=== PATIENT | male | born 1965 | race Hispanic/Latino ===

== ENCOUNTER 2018-12-23 18:23 | Inpatient (IN) | payer OTHER, SELFPAY ==
[~2018-12-23] VITALS: Ht 167.6 cm; Wt 110.7 kg
[2018-12-23] MEDS ORDERED: SODIUM CHLORIDE 0.9% 1000ML 1,000 ML IV ONE (19:47)
[2018-12-23] MEDS ORDERED: KETOROLAC TROMETHAMINE 30MG/ML ONE (19:47)
[2018-12-23] MEDS ORDERED: ONDANSETRON HCL 4 MG/2 ML VIAL ONE (19:47)
[2018-12-23 19:55] LABS: BASOPHILS % (AUTO) 0.4 % (0.0-5.0); EOSINOPHILS % (AUTO) 0.5 % (0.0-8.0); HEMATOCRIT 42.2 % (42-54); MEAN CORPUSCULAR HEMOGLOBIN 30.4 pg (27.0-33.0); MEAN CORPUSCULAR HGB CONC 34.5 g/dL (32.0-36.0); MEAN CORPUSCULAR VOLUME 88.2 fL (79-99); MONOCYTES % (AUTO) 7.3 % (3.0-13.0); NEUTROPHILS % (AUTO) 76.8 % (40.0-77.0); NUCLEATED RED BLOOD CELLS 0.1 % (0.0-0.19); PLATELET COUNT (AUTO) 347 K/uL (130-400); RED BLOOD CELL COUNT(AUTO) 4.79 MIL/uL (4.50-6.20); RED CELL DISTRIBUTION WIDTH 13.2 % (11.0-15.5); WHITE BLOOD COUNT (AUTO) 13.5 K/uL (4.8-10.8)
[2018-12-23 20:10] LABS: CREATININE 0.8 mg/dL (0.5-1.5); POTASSIUM 3.7 mmol/L (3.5-5.1)
[2018-12-23 20:14] LABS: ALBUMIN 2.9 g/dL (3.5-5.0); BILIRUBIN,DIRECT 0.1 mg/dL (0.0-0.3); BILIRUBIN,TOTAL 0.9 mg/dL (0.2-1.0); TOTAL PROTEIN, SERUM 8.2 g/dL (6.0-8.3)
[2018-12-23] MEDS ORDERED: IOHEXOL-350 75 ML VIAL IV ONE (20:42)
[2018-12-23 21:12] LABS: INR 1.33 (0.85-1.15); PARTIAL THROMBOPLASTIN TIME 28.4 SEC (26.3-35.5); PROTHROMBIN TIME 13.6 SEC (9.6-11.6)
[2018-12-23] MEDS ORDERED: ZOSYN 3.375GM+NS 50ML 50 ML IV ONE (23:08)
[2018-12-24 00:20] LABS: APPEARANCE,URINE Clear (CLEAR); BILIRUBIN,URINE Small (NEGATIVE); COLOR,URINE Dark Yellow (YELLOW); GLUCOSE, URINE (UA) Negative (NEGATIVE); KETONES,URINE Negative (NEGATIVE); LEUKOCYTE ESTERASE ,URINE Negative (NEGATIVE); NITRATE,URINE Negative (NEGATIVE); OCCULT BLOOD,URINE Negative (NEGATIVE); PROTEIN,URINE Trace mg/dL (NEGATIVE)
[2018-12-24] MEDS ORDERED: MORPHINE SULFATE 4 MG/1ML SYG IV PRN (02:45)
[2018-12-24] MEDS ORDERED: ONDANSETRON HCL 4 MG/2 ML VIAL IV PRN (02:45)
[2018-12-24] MEDS ORDERED: ACETAMINOPHEN 325 MG TAB PO PRN ×2 (02:45)
[2018-12-24] MEDS ORDERED: MORPHINE SULFATE 2 MG/ML 1ML SYG IV PRN (02:45)
[2018-12-24] MEDS ORDERED: HYDRALAZINE HCL 20 MG/ML VIAL IV PRN (02:45)
[2018-12-24 03:27] LABS: BASOPHILS % (AUTO) 0.2 % (0.0-5.0); EOSINOPHILS % (AUTO) 1.5 % (0.0-8.0); HEMATOCRIT 27.8 % (42-54); LYMPHOCYTES % (AUTO) 19.5 % (21.0-51.0); MEAN CORPUSCULAR HEMOGLOBIN 30.9 pg (27.0-33.0); MEAN CORPUSCULAR HGB CONC 34.6 g/dL (32.0-36.0); MEAN CORPUSCULAR VOLUME 89.2 fL (79-99); MONOCYTES % (AUTO) 9.8 % (3.0-13.0); PLATELET COUNT (AUTO) 190 K/uL (130-400); RED BLOOD CELL COUNT(AUTO) 3.12 MIL/uL (4.50-6.20); RED CELL DISTRIBUTION WIDTH 13.2 % (11.0-15.5); WHITE BLOOD COUNT (AUTO) 6.4 K/uL (4.8-10.8)
[2018-12-24 03:36] LABS: ALBUMIN 2.5 g/dL (3.5-5.0); BILIRUBIN,TOTAL 0.9 mg/dL (0.2-1.0); CREATININE 0.7 mg/dL (0.5-1.5); POTASSIUM 3.6 mmol/L (3.5-5.1); TOTAL PROTEIN, SERUM 7.1 g/dL (6.0-8.3)
[2018-12-24 07:30] VITALS: BP 147/77
[2018-12-24] MEDS ORDERED: FLU VACC QS2019-20 36MOS UP/PF 60 MCG/0.5 ML ML IM SCH (09:15)
[2018-12-24] MEDS ORDERED: FLU VACC QS2019-20 36MOS UP/PF 60 MCG/0.5 ML ML IM ONE (09:15)
[2018-12-24] MEDS: FAMOTIDINE/PF 20 MG/2 ML VIAL IV SCH ×2 (10:52→21:14)
[2018-12-24] MEDS: ENOXAPARIN SODIUM 30 MG/0.3 ML SQ SCH (10:53)
[2018-12-24] MEDS ORDERED: GADODIAMIDE 10 MMOL/20 ML VIAL IV ONE (10:54)
[2018-12-24 11:25] VITALS: BP 138/83
[2018-12-24] MEDS ORDERED: LACTULOSE 20 GM/30 ML UDCUP PO PRN (12:00)
[2018-12-24] MEDS: PNEUMOCOCCAL VACCINE POLYVALENT 0.5 ML/VIAL [PPV] IM SCH (12:19)
[2018-12-24] MEDS: FLU VACC QS2019-20 36MOS UP/PF 60 MCG/0.5 ML ML IM SCH (12:19)
--- NOTE | 2018-12-24 12:36 | NUR ---
i spoke to GI dr skelton and informed of new consult and pt dx; he stated to get a oncology consult first prior to GI but that he would look in on patient; i have informed AJ of this and received orders to consult oncology, calling director of land acquisitiondirector call now.
[2018-12-24] MEDS ORDERED: ASPI-555 PO (13:18)
[2018-12-24] MEDS ORDERED: ATOR40TA71 PO (13:18)
[2018-12-24] MEDS ORDERED: LISI40TA4 PO (13:18)
[2018-12-24 16:00] VITALS: BP 150/87
[2018-12-24] MEDS: INSULIN HUMULIN R 100 UNIT/ML 3ML SQ SCH ×2 (16:30→21:00)
[2018-12-24 20:00] VITALS: BP 139/86
[2018-12-24 23:37] VITALS: BP 154/83
[2018-12-25 03:55] VITALS: BP 141/89
[2018-12-25 05:14] LABS: BASOPHILS % (AUTO) 0.4 % (0.0-5.0); EOSINOPHILS % (AUTO) 1.1 % (0.0-8.0); HEMATOCRIT 38.1 % (42-54); MEAN CORPUSCULAR HEMOGLOBIN 30.6 pg (27.0-33.0); MEAN CORPUSCULAR HGB CONC 34.9 g/dL (32.0-36.0); MEAN CORPUSCULAR VOLUME 87.7 fL (79-99); MONOCYTES % (AUTO) 7.3 % (3.0-13.0); NEUTROPHILS % (AUTO) 74.2 % (40.0-77.0); PLATELET COUNT (AUTO) 267 K/uL (130-400); RED BLOOD CELL COUNT(AUTO) 4.35 MIL/uL (4.50-6.20); RED CELL DISTRIBUTION WIDTH 13.2 % (11.0-15.5); WHITE BLOOD COUNT (AUTO) 8.2 K/uL (4.8-10.8)
[2018-12-25 05:21] LABS: CREATININE 0.8 mg/dL (0.5-1.5)
[2018-12-25] MEDS: INSULIN HUMULIN R 100 UNIT/ML 3ML SQ SCH ×4 (07:29→20:05)
[2018-12-25 08:00] VITALS: BP 141/86
[2018-12-25] MEDS: ENOXAPARIN SODIUM 30 MG/0.3 ML SQ SCH (09:00)
[2018-12-25] MEDS: PNEUMOCOCCAL VACCINE POLYVALENT 0.5 ML/VIAL [PPV] IM SCH (09:15)
[2018-12-25] MEDS: ATORVASTATIN CALCIUM 40 MG TABLET PO SCH (09:49)
[2018-12-25] MEDS: ASPIRIN 81 MG EC TAB PO SCH (09:49)
[2018-12-25] MEDS: LISINOPRIL 40 MG TABLET PO SCH (09:49)
[2018-12-25] MEDS: FAMOTIDINE/PF 20 MG/2 ML VIAL IV SCH ×2 (09:49→20:04)
[2018-12-25 11:00] VITALS: BP 145/88
[2018-12-25] MEDS: FLU VACC QS2019-20 36MOS UP/PF 60 MCG/0.5 ML ML IM SCH (11:45)
--- NOTE | 2018-12-25 15:37 | NUR ---
cm note resides at home with brother, pt is independent with ambulation, adls and self care, no dme.. states [facility] to [facility] possible [facility] assist program. provided pt with list of low income clinics in the area for MD followup , rx assist programs, pt verbalizes understanding, and will followup with an MD. dc plan is to home at me. Addendum: 12/25/18 at 1540 by ZEINA JEAN CM Amended: Links added.
[2018-12-25 16:00] VITALS: BP 156/91
[2018-12-25 19:06] VITALS: BP 150/86
[2018-12-25 23:14] VITALS: BP 147/85
[2018-12-26 04:00] VITALS: BP 131/78
[2018-12-26] MEDS: INSULIN HUMULIN R 100 UNIT/ML 3ML SQ SCH ×4 (06:34→21:00)
[2018-12-26 08:03] VITALS: BP 138/81
[2018-12-26] MEDS: ENOXAPARIN SODIUM 30 MG/0.3 ML SQ SCH (09:00)
[2018-12-26] MEDS: ASPIRIN 81 MG EC TAB PO SCH (09:00)
[2018-12-26] MEDS: ATORVASTATIN CALCIUM 40 MG TABLET PO SCH (09:00)
[2018-12-26] MEDS: LISINOPRIL 40 MG TABLET PO SCH (09:49)
[2018-12-26] MEDS: FAMOTIDINE/PF 20 MG/2 ML VIAL IV SCH (09:49)
[2018-12-26 10:01] LABS: INR 1.35 (0.85-1.15); PARTIAL THROMBOPLASTIN TIME 27.9 SEC (26.3-35.5); PROTHROMBIN TIME 13.7 SEC (9.6-11.6)
[2018-12-26 12:00] VITALS: BP 141/86
--- NOTE | 2018-12-26 14:15 | NUR ---
PROCEDURE PATIENT SCHEDULED FOR U/S GD LIVER LESION BIOPSY. PATENT TRANSPORTED TO DEPARTMENT AND DISCUSSED PROCEDURE WITH DR Jimbo MARQUEZ. PATIENT STATED HE HAD ALREADY HAD A BIOPSY OF HIS LIVER AND STOMACH MASS A MONTH AGO AT [facility]. [facility] RECORDS REVIEWED BY DR MARQUEZ AND VERIFIED ADEQUATE SAMPLES WITH PATHOLOGY RESULTS OF PREVIOUS LIVER BIOPSY. PROCEDURE CANCELLED BY RADIOLOGIST AND OUTCOME REPORTED TO HERBERTH KING. PATIENT TRANSPORTED TO [facility] VIA BED.
--- NOTE | 2018-12-26 15:26 | NUR ---
RD NOTIFICATION DX: GANGRENOUS INFECTION TO LEFT LEG. DIET: CLEAR LIQUIDS. PO INTAKE 100% AND HAS GOOD APPETITE PER PT. LBM: 12/20. PT ADMITS TO BEING NON COMPLIANT WITH DM MEDICATION, HOWEVER DOES TRY TO EAT FOODS LOW IN CARBOHYDRATES. DAUGHTER COOKS FOR PT MOST MEALS. RD PROVIDED DM DIET AND NUTRITION EDUCATION. PT ASKED QUESTIONS, RD ANSWERED, PT VERBALIZED UNDERSTANDING. EDUCATION MATERIALS PROVIDED. RD RECOMMENDS TO ADVANCE DIET TOLERATED WHEN MEDICALLY FEASIBLE. ADVANCE TO 75GM CCD, HEART HEALTHY. RD PROVIDED DM DIET AND NUTRITION EDUCATION. RD WILL CONTINUE TO FOLLOW UP NEEDED. Addendum: 12/26/18 at [address] Amended: Links added.
--- NOTE | 2018-12-26 15:27 | NUR ---
DIET EDUCATION PT ADMITS TO BEING NON COMPLIANT WITH DM MEDICATION, HOWEVER DOES TRY TO EAT FOODS LOW IN CARBOHYDRATES. DAUGHTER COOKS FOR PT MOST MEALS. ADRIANNE PROVIDED DM DIET AND NUTRITION EDUCATION. PT ASKED QUESTIONS, RD ANSWERED, PT VERBALIZED UNDERSTANDING. EDUCATION MATERIALS PROVIDED. Addendum: 12/26/18 at [address] RD Amended: Links added.
[2018-12-26 16:00] VITALS: BP 158/92
[2018-12-26 19:45] VITALS: BP 137/84
[2018-12-26 23:24] VITALS: BP 140/82
[2018-12-27] MEDS: FAMOTIDINE/PF 20 MG/2 ML VIAL IV SCH ×2 (00:10→08:56)
[2018-12-27 03:03] VITALS: BP 133/71
[2018-12-27] MEDS: INSULIN HUMULIN R 100 UNIT/ML 3ML SQ SCH ×3 (05:53→15:50)
[2018-12-27 06:16] LABS: BASOPHILS % (AUTO) 0.4 % (0.0-5.0); EOSINOPHILS % (AUTO) 1.4 % (0.0-8.0); HEMATOCRIT 36.3 % (42-54); LYMPHOCYTES % (AUTO) 13.8 % (21.0-51.0); MEAN CORPUSCULAR HEMOGLOBIN 30.6 pg (27.0-33.0); MEAN CORPUSCULAR HGB CONC 34.7 g/dL (32.0-36.0); MEAN CORPUSCULAR VOLUME 88.2 fL (79-99); MONOCYTES % (AUTO) 9.5 % (3.0-13.0); NEUTROPHILS % (AUTO) 74.9 % (40.0-77.0); PLATELET COUNT (AUTO) 269 K/uL (130-400); RED BLOOD CELL COUNT(AUTO) 4.11 MIL/uL (4.50-6.20); RED CELL DISTRIBUTION WIDTH 13.4 % (11.0-15.5); WHITE BLOOD COUNT (AUTO) 8.4 K/uL (4.8-10.8)
[2018-12-27 06:27] LABS: CREATININE 0.8 mg/dL (0.5-1.5); POTASSIUM 3.4 mmol/L (3.5-5.1)
[2018-12-27 08:00] VITALS: BP 140/81
[2018-12-27] MEDS: ASPIRIN 81 MG EC TAB PO SCH (08:56)
[2018-12-27] MEDS: ATORVASTATIN CALCIUM 40 MG TABLET PO SCH (08:56)
[2018-12-27] MEDS: LISINOPRIL 40 MG TABLET PO SCH (08:56)
[2018-12-27] MEDS: ENOXAPARIN SODIUM 30 MG/0.3 ML SQ SCH (08:57)
[2018-12-27] MEDS ORDERED: POLYETHYLENE GLYCOL 3350 17 GM POWD.PACK PO SCH (09:00)
[2018-12-27] MEDS ORDERED: POTASSIUM CHLORIDE 10% ELIXIR 20 MEQ/15 ML UDCUP PO SCH (11:00)
[2018-12-27 11:32] VITALS: BP 144/84
[2018-12-27 16:00] VITALS: BP 148/77
== END 2018-12-27 19:04 | disposition home or self-care (01) | DRG 436 ==
LOC: EDH 18:23 → EDHIP 18:24 → 4BH 12-24 07:46
PROVIDERS: ADMIT Internal Medicine; ATTEND Internal Medicine
PROC: 3E02340 Introduction of Influenza Vaccine into Muscle, Percutaneous Approach (ICD-10-PCS; principal; 2018-12-24)
PROC: 3E0234Z Introduction of Serum, Toxoid and Vaccine into Muscle, Percutaneous Approach (ICD-10-PCS; 2018-12-24)
DX: C22.1 Intrahepatic bile duct carcinoma (principal); E44.0 Moderate protein-calorie malnutrition; I10 Essential (primary) hypertension; E11.9 Type 2 diabetes mellitus without complications; D72.829 Elevated white blood cell count, unspecified; E66.01 Morbid (severe) obesity due to excess calories; E78.2 Mixed hyperlipidemia; K42.9 Umbilical hernia without obstruction or gangrene; Z68.39 Body mass index [BMI] 39.0-39.9, adult; Z86.718 Personal history of other venous thrombosis and embolism; Z23 Encounter for immunization; Z86.711 Personal history of pulmonary embolism
CPT/HCPCS: 36415; 74177; 74183; 76705; 80048; 80053; 80076; 81003; 82948; 83690; 85025; 85610; 85730; 87040; 90732; 93970; A9579; G0008; G0009; G0378; J1650; J1885; J2405; J2543; J3490; J7030; Q2035; Q9967

== ENCOUNTER 2018-12-29 20:00 | Inpatient (IN) | payer OTHER ==
[~2018-12-29] VITALS: Ht 167.6 cm; Wt 110.7 kg
[~2018-12-29 20:00] MED LIST: ASPI-555 PO; ATOR40TA71 PO; LISI40TA4 PO
[2018-12-29] MEDS ORDERED: ONDANSETRON HCL 4 MG/2 ML VIAL ONE (20:47)
[2018-12-29] MEDS ORDERED: MORPHINE SULFATE 4 MG/1ML SYG ONE (20:48)
[2018-12-29 20:54] LABS: BASOPHILS % (AUTO) 0.4 % (0.0-5.0); EOSINOPHILS % (AUTO) 0.5 % (0.0-8.0); HEMATOCRIT 39.8 % (42-54); MEAN CORPUSCULAR HEMOGLOBIN 30.6 pg (27.0-33.0); MEAN CORPUSCULAR HGB CONC 34.8 g/dL (32.0-36.0); MONOCYTES % (AUTO) 7.6 % (3.0-13.0); NEUTROPHILS % (AUTO) 79.5 % (40.0-77.0); PLATELET COUNT (AUTO) 297 K/uL (130-400); RED BLOOD CELL COUNT(AUTO) 4.52 MIL/uL (4.50-6.20); RED CELL DISTRIBUTION WIDTH 13.5 % (11.0-15.5); WHITE BLOOD COUNT (AUTO) 10.8 K/uL (4.8-10.8)
[2018-12-29 21:14] LABS: CREATININE 0.7 mg/dL (0.5-1.5); POTASSIUM 3.5 mmol/L (3.5-5.1)
[2018-12-29 21:18] LABS: ALBUMIN 2.9 g/dL (3.5-5.0); BILIRUBIN,TOTAL 0.9 mg/dL (0.2-1.0)
[2018-12-29] MEDS ORDERED: IOHEXOL-350 75 ML VIAL IV ONE (21:19)
[2018-12-29 22:27] LABS: APPEARANCE,URINE Clear (CLEAR); BILIRUBIN,URINE Negative (NEGATIVE); COLOR,URINE Yellow (YELLOW); GLUCOSE, URINE (UA) Negative (NEGATIVE); KETONES,URINE Trace mg/dL (NEGATIVE); LEUKOCYTE ESTERASE ,URINE Negative (NEGATIVE); NITRATE,URINE Negative (NEGATIVE); OCCULT BLOOD,URINE Small (NEGATIVE); PH,URINE 6.5 (5.0-8.0); PROTEIN,URINE Negative (NEGATIVE)
[2018-12-29 22:34] LABS: AMPHET/METH SCREEN,URINE NEGATIVE (NEGATIVE); BARBITURATE SCREEN, URINE NEGATIVE (NEGATIVE); BENZODIAZEPINES SCREEN,URINE NEGATIVE (NEGATIVE); CANNABINOID SCREEN,URINE NEGATIVE (NEGATIVE); COCAINE SCREEN,URINE NEGATIVE (NEGATIVE); OPIATE SCREEN,URINE POSITIVE (NEGATIVE); PHENCYCLIDINE SCREEN,URINE NEGATIVE (NEGATIVE)
[2018-12-29 22:40] LABS: BACTERIA,URINE None Seen /HPF (None Seen); MUCUS,URINE Few LPF (None Seen); RBC,URINE 0-1 /HPF (0-1); SQUAMOUS EPITHELIAL CELL,UR Rare /HPF (0-2); WBC,URINE None Seen /HPF (0-1)
[2018-12-30] MEDS ORDERED: FENTANYL 50 MCG/HR PATCH TD SCH (00:15)
[2018-12-30] MEDS ORDERED: FENTANYL 50 MCG/HR PATCH TD ONE (00:23)
[2018-12-30] MEDS ORDERED: HYDRALAZINE HCL 20 MG/ML VIAL IV PRN (00:45)
[2018-12-30] MEDS ORDERED: HYDRALAZINE HCL 20 MG/ML VIAL ONE (01:51)
[2018-12-30 02:20] VITALS: BP 145/71
[2018-12-30 05:40] LABS: BASOPHILS % (AUTO) 0.3 % (0.0-5.0); EOSINOPHILS % (AUTO) 0.1 % (0.0-8.0); HEMATOCRIT 40.5 % (42-54); LYMPHOCYTES % (AUTO) 6.8 % (21.0-51.0); MEAN CORPUSCULAR HEMOGLOBIN 30.4 pg (27.0-33.0); MEAN CORPUSCULAR HGB CONC 34.7 g/dL (32.0-36.0); MEAN CORPUSCULAR VOLUME 87.5 fL (79-99); MONOCYTES % (AUTO) 8.4 % (3.0-13.0); NEUTROPHILS % (AUTO) 84.4 % (40.0-77.0); PLATELET COUNT (AUTO) 343 K/uL (130-400); RED BLOOD CELL COUNT(AUTO) 4.63 MIL/uL (4.50-6.20); RED CELL DISTRIBUTION WIDTH 13.2 % (11.0-15.5); WHITE BLOOD COUNT (AUTO) 13.2 K/uL (4.8-10.8)
[2018-12-30 05:53] LABS: ALBUMIN 2.9 g/dL (3.5-5.0); BILIRUBIN,TOTAL 1.1 mg/dL (0.2-1.0); CREATININE 0.7 mg/dL (0.5-1.5); POTASSIUM 3.7 mmol/L (3.5-5.1); TOTAL PROTEIN, SERUM 8.1 g/dL (6.0-8.3)
--- NOTE | 2018-12-30 07:05 | NUR ---
NG TUBE PATIENT REMOVED NG TUBE WHILE ATTEMPTING TO SIT UP WITH FAMILY MEMBER IN ROOM. ATTEMPTED TO RE-INSERT HOWEVER, PATIENT REMOVED NG AGAIN BECAUSE HE STATED THAT IT WAS HURTING HIM TOO MUCH. PATIENT STATED HE WANTED ANOTHER NURSE TO ATTEMPT NG TUBE INSERTION.
[2018-12-30] MEDS: ONDANSETRON HCL 4 MG/2 ML VIAL IVP PRN ×2 (07:34→18:43)
[2018-12-30 08:43] VITALS: BP 162/83
[2018-12-30] MEDS ORDERED: LACTULOSE 20 GM/30 ML UDCUP ONE (09:43)
[2018-12-30] MEDS: FAMOTIDINE/PF 20 MG/2 ML VIAL IV SCH ×2 (09:45→19:29)
[2018-12-30] MEDS ORDERED: LACTULOSE 20 GM/30 ML UDCUP PO PRN (09:45)
[2018-12-30] MEDS ORDERED: KETOROLAC TROMETHAMINE 30MG/ML IM PRN (09:45)
[2018-12-30] MEDS: ENOXAPARIN SODIUM 30 MG/0.3 ML SQ SCH (09:46)
[2018-12-30] MEDS: MORPHINE SULFATE 4 MG/1ML SYG IV PRN ×2 (09:46→18:43)
--- NOTE | 2018-12-30 11:26 | NUR ---
DR SANTANA DILLON PAGEDX 1 REGARDING CONSULT
[2018-12-30 11:49] VITALS: BP 144/78
--- NOTE | 2018-12-30 14:20 | NUR ---
[facility] CM met with pt discussed dc plans. Pt is independent prior to admission, lives with brother, daughter lives close by. Denies any equipments/services. Feels safe to go back home, brother and daughter able to assist with transportation and needs as necessary. Pt is a self pay, [facility] assisting, given [employer] packet. DC plan to home once stable. CM to cont to follow up. Addendum: 12/30/18 at 1424 by ADDISON ANGUIANO LVN CM Amended: Links added.
[2018-12-30 16:15] VITALS: BP 168/91
[2018-12-30 20:00] VITALS: BP 135/86
[2018-12-30 23:55] VITALS: BP 144/88
[2018-12-31 04:00] VITALS: BP 138/85
[2018-12-31] MEDS: ONDANSETRON HCL 4 MG/2 ML VIAL IVP PRN ×3 (06:52→21:50)
[2018-12-31 08:00] VITALS: BP 136/79
[2018-12-31] MEDS: FAMOTIDINE/PF 20 MG/2 ML VIAL IV SCH ×2 (09:38→19:38)
[2018-12-31] MEDS: ENOXAPARIN SODIUM 30 MG/0.3 ML SQ SCH (09:39)
[2018-12-31] MEDS: POLYETHYLENE GLYCOL 3350 17 GM POWD.PACK PO SCH (09:39)
[2018-12-31] MEDS: MORPHINE SULFATE 4 MG/1ML SYG IV PRN ×2 (09:40→14:01)
--- NOTE | 2018-12-31 10:36 | NUR ---
DR SANTANA GUILLORY FOR CONSULT. PENDING CB
--- NOTE | 2018-12-31 11:33 | NUR ---
DR DILLON CB DR DILLON CALLED BACK REGARDING PAGE- STATED HE RECOMMENDS TO DC PATIENT WITH APLLIATIVE CARE. PER MD HE WILL BE IN LATER TO SEE PATIENT. PT AND FAMILY MADE AWARE
[2018-12-31 12:00] VITALS: BP 137/78
[2018-12-31] MEDS ORDERED: LACTULOSE 20 GM/30 ML UDCUP PO SCH (13:15)
[2018-12-31] MEDS ORDERED: MORPHINE SULFATE 15 MG TABLET.SA PO SCH (13:15)
[2018-12-31] MEDS ORDERED: BISACODYL 5 MG TABLET.DR PO PRN (13:15)
[2018-12-31] MEDS: LACTULOSE 20 GM/30 ML UDCUP PO SCH ×2 (14:01→19:38)
[2018-12-31 16:00] VITALS: BP 140/75
[2018-12-31] MEDS: MORPHINE SULFATE 15 MG TABLET.SA PO SCH (19:39)
[2018-12-31 20:00] VITALS: BP 156/89
[2018-12-31] MEDS: HYDROMORPHONE HCL 0.5 MG/0.5 ML ML IVP PRN (23:45)
[2019-01-01] VITALS: BP 148/94
[2019-01-01] MEDS: HYDROMORPHONE HCL 0.5 MG/0.5 ML ML IVP PRN ×2 (03:46→13:34)
[2019-01-01] MEDS: LACTULOSE 20 GM/30 ML UDCUP PO SCH ×3 (03:59→20:51)
[2019-01-01 04:00] VITALS: BP 162/98
[2019-01-01 05:16] LABS: BASOPHILS % (AUTO) 0.2 % (0.0-5.0); EOSINOPHILS % (AUTO) 0.8 % (0.0-8.0); HEMATOCRIT 40.4 % (42-54); LYMPHOCYTES % (AUTO) 11.4 % (21.0-51.0); MEAN CORPUSCULAR HEMOGLOBIN 30.6 pg (27.0-33.0); MEAN CORPUSCULAR HGB CONC 34.9 g/dL (32.0-36.0); MEAN CORPUSCULAR VOLUME 87.6 fL (79-99); MONOCYTES % (AUTO) 22.5 % (3.0-13.0); NEUTROPHILS % (AUTO) 65.1 % (40.0-77.0); PLATELET COUNT (AUTO) 332 K/uL (130-400); RED BLOOD CELL COUNT(AUTO) 4.61 MIL/uL (4.50-6.20); RED CELL DISTRIBUTION WIDTH 13.8 % (11.0-15.5)
[2019-01-01 05:36] LABS: POTASSIUM 3.4 mmol/L (3.5-5.1)
[2019-01-01] MEDS: ONDANSETRON HCL 4 MG/2 ML VIAL IVP PRN (05:53)
[2019-01-01 08:00] VITALS: BP 163/94
[2019-01-01] MEDS: POLYETHYLENE GLYCOL 3350 17 GM POWD.PACK PO SCH (09:00)
[2019-01-01] MEDS: FAMOTIDINE/PF 20 MG/2 ML VIAL IV SCH ×2 (09:32→20:51)
[2019-01-01] MEDS: MORPHINE SULFATE 15 MG TABLET.SA PO SCH ×2 (09:32→20:51)
[2019-01-01] MEDS: ENOXAPARIN SODIUM 30 MG/0.3 ML SQ SCH (10:47)
[2019-01-01 12:00] VITALS: BP 141/80
[2019-01-01] MEDS ORDERED: POTASSIUM CHLORIDE 20 MEQ ERTAB PO SCH (12:45)
[2019-01-01] MEDS: FENTANYL 50 MCG/HR PATCH TD SCH (13:33)
[2019-01-01 13:45] LABS: CREATININE 0.9 mg/dL (0.5-1.5); POTASSIUM 3.8 mmol/L (3.5-5.1)
[2019-01-01 16:00] VITALS: BP 137/86
[2019-01-01 20:00] VITALS: BP 154/91
[2019-01-02] VITALS (7 sets, daily range): BP systolic 136–154; BP diastolic 76–98
[2019-01-02] MEDS: LACTULOSE 20 GM/30 ML UDCUP PO SCH ×3 (03:05→21:00)
[2019-01-02] MEDS ORDERED: MAGNESIUM CITRATE 296 ML SOLUTION PO SCH (08:30)
--- NOTE | 2019-01-02 09:23 | NUR ---
PALLIATIVE CARE Sw met with pt and son at bedside. Per pt, he was dx a few months ago and has not been able to get any treatment related to non funding. Pt has applied for SSD and decision pending. MDs have spoken to pt about Dr Mendez Palliative consult and pt is agreeable. Pt informed that Dr Mendez will notify me of time that he can come to see pt, either this afternoon, or in am. Pt voiced understanding. SW spoke to Dr Mendez who is aware of consult and will try and be here this afternoon or in am. Dr Mendez to update on time and Sw to notify pt and family
--- NOTE | 2019-01-02 09:27 | NUR ---
CALL WITH DAUGHTER LUIS CALL RECD FROM DAUGHTER LUIS- STATES SHE HAS SENT OFF A BERNARDO APPLICATION TO [facility] AND IS WAITING FOR RESPONSE. DAUGHTER UPSET THAT NO ONE HAS TOLD HER WHAT KIND OF CANCER HE DAD HAS, JUST THAT IT IS STAGE IV, STATES NO ONE HAS MENTIONED STOPPING TREATMENT, DENIES THAT ANYONE HAS SAID HE IS TERMINAL OR ADVISED ON HOSPICE STATES SHE HAD TO GO FIND RESOURCES FOR HER FATHER-WAS TOLD THERE IS NO [facility] IN [facility] [employer] TO TREAT PATIENT DAUGHTER IS FRUSTRATED & UPSET. HER NUMBER DOES NOT APPEAR ON THE FACE SHEET BUT SHE STATED SHE IS HELPING HER FATHER IS THE MAIN DECISION MAKER, BUT HER BROTHER IS THERE CURRENTLY AT THE BEDSIDE. HAS USED UP HER DAYS OFF, CNANOT BE AT BEDSIDE DURING THE DAY, CURRENTLY AT WORK. PHONE NUMBER IS [phone] FACE SHEET UPDATED / FAXED DAUGHTER IS ASKING FOR OTHER CLINICS AND OTHER OPTIONS. ADVISED HER THIS ACCOUNTING RECRUITER WOULD OBTAINED THE NUMBER FOR [facility]- HAVE HAD SUCCESS PLACING PATIENT TIMELY THERE BEFORE NOTES REVIEWED- SAW SW NOTES- CM UNAWARE THERE WAS A PALLIATIVE CARE CONSULT AT TIME OF CALL/ - WILL UPDATE SUBMARINE CABLE EQUIPMENT TECHNICIAN - CALL BACK TO LUIS- ADVISED HER WILL PASS HER INTO TO SW, MAYBE CAN BE ON SPEAKER PHONE AT SAME TIME DR. DEAN? HAYLEY ADAMANT THAT HER FATHER IS NOT READY TO BE RELEASED TODAY.
[2019-01-02] MEDS: FAMOTIDINE/PF 20 MG/2 ML VIAL IV SCH ×2 (09:48→20:08)
[2019-01-02] MEDS: ENOXAPARIN SODIUM 30 MG/0.3 ML SQ SCH (09:49)
[2019-01-02] MEDS: POLYETHYLENE GLYCOL 3350 17 GM POWD.PACK PO SCH (09:50)
[2019-01-02] MEDS: TRAMADOL HCL 50 MG TABLET PO PRN (09:50)
[2019-01-02] MEDS: MORPHINE SULFATE 15 MG TABLET.SA PO SCH ×2 (10:02→21:00)
--- NOTE | 2019-01-02 13:51 | NUR ---
Dr Mendez at 3 Sw called daughter Bing and informed her that Dr Mendez would be here at about 3. [facility] states she can be available by phone at 3. Daughter states that she Dr Henry stated that he wants to see pt in his office and was going to refer him for surgery. Daughter denies that Elaine has ever spoken to pt about hospice. Daughter states that she has done olu application and pt is partially approved, pending proof of citizenship. Daughter wanting SS application process expedited and Sw educated on Devi case applications.
--- NOTE | 2019-01-02 17:26 | NUR ---
Dr Mendez Sw and CMD present when Dr Mendez met with pt, ex , son and daughter Bing was on speaker phone. Dr Mendez showed pt and family the pictures of mass and explained to them what current situation was and explained symptoms pt has, related to mass and it's location. Dr Mendez discussed pt's options in detail as well as educated on hospice if surgery was not an option. Pt voiced understanding and appreciation to Dr Mendez for explaining everything to him in a manner easy to understand. Pt states he will talk to Dr Flores and if surgery is possible will have it.
[2019-01-02] MEDS: ONDANSETRON HCL 4 MG/2 ML VIAL IVP PRN (20:08)
[2019-01-03 03:37] VITALS: BP 149/90
[2019-01-03 04:46] LABS: BASOPHILS % (AUTO) 0.2 % (0.0-5.0); EOSINOPHILS % (AUTO) 1.3 % (0.0-8.0); HEMATOCRIT 37.5 % (42-54); LYMPHOCYTES % (AUTO) 15.4 % (21.0-51.0); MEAN CORPUSCULAR HEMOGLOBIN 30.5 pg (27.0-33.0); MEAN CORPUSCULAR HGB CONC 35.1 g/dL (32.0-36.0); MEAN CORPUSCULAR VOLUME 86.7 fL (79-99); MONOCYTES % (AUTO) 22.2 % (3.0-13.0); NEUTROPHILS % (AUTO) 60.9 % (40.0-77.0); PLATELET COUNT (AUTO) 331 K/uL (130-400); RED BLOOD CELL COUNT(AUTO) 4.33 MIL/uL (4.50-6.20); RED CELL DISTRIBUTION WIDTH 13.3 % (11.0-15.5); WHITE BLOOD COUNT (AUTO) 7.6 K/uL (4.8-10.8)
[2019-01-03 04:53] LABS: CREATININE 0.8 mg/dL (0.5-1.5); POTASSIUM 3.9 mmol/L (3.5-5.1)
[2019-01-03] MEDS: LACTULOSE 20 GM/30 ML UDCUP PO SCH ×3 (05:00→21:49)
[2019-01-03 08:11] VITALS: BP 142/86
[2019-01-03] MEDS: POLYETHYLENE GLYCOL 3350 17 GM POWD.PACK PO SCH (08:51)
[2019-01-03] MEDS: MORPHINE SULFATE 15 MG TABLET.SA PO SCH ×2 (08:51→21:00)
[2019-01-03] MEDS: ENOXAPARIN SODIUM 30 MG/0.3 ML SQ SCH (09:28)
[2019-01-03] MEDS: ONDANSETRON HCL 4 MG/2 ML VIAL IVP PRN ×2 (09:28→21:49)
[2019-01-03] MEDS: FAMOTIDINE/PF 20 MG/2 ML VIAL IV SCH ×2 (09:28→21:49)
--- NOTE | 2019-01-03 11:10 | NUR ---
DR. WALKER PAGED SECOND TIME TO SEE PT, PENDING TO SEE PT FOR HIS RECOMMENDATION.
[2019-01-03 12:00] VITALS: BP 136/82
[2019-01-03 16:00] VITALS: BP 143/72
[2019-01-03 19:15] VITALS: BP 145/78
[2019-01-03] MEDS: HYDROMORPHONE HCL 0.5 MG/0.5 ML ML IVP PRN (21:50)
[2019-01-04 00:08] VITALS: BP 156/88
[2019-01-04 04:25] VITALS: BP 150/80
[2019-01-04] MEDS: LACTULOSE 20 GM/30 ML UDCUP PO SCH ×3 (05:00→22:10)
[2019-01-04 05:09] LABS: BASOPHILS % (AUTO) 0.2 % (0.0-5.0); EOSINOPHILS % (AUTO) 0.7 % (0.0-8.0); HEMATOCRIT 38.6 % (42-54); LYMPHOCYTES % (AUTO) 11.4 % (21.0-51.0); MEAN CORPUSCULAR HEMOGLOBIN 30.3 pg (27.0-33.0); MEAN CORPUSCULAR HGB CONC 34.8 g/dL (32.0-36.0); MEAN CORPUSCULAR VOLUME 87.1 fL (79-99); MONOCYTES % (AUTO) 18.4 % (3.0-13.0); NEUTROPHILS % (AUTO) 69.3 % (40.0-77.0); NUCLEATED RED BLOOD CELLS 0.1 % (0.0-0.19); PLATELET COUNT (AUTO) 322 K/uL (130-400); RED BLOOD CELL COUNT(AUTO) 4.43 MIL/uL (4.50-6.20); RED CELL DISTRIBUTION WIDTH 13.4 % (11.0-15.5); WHITE BLOOD COUNT (AUTO) 9.9 K/uL (4.8-10.8)
[2019-01-04 05:27] LABS: CREATININE 0.7 mg/dL (0.5-1.5); POTASSIUM 3.7 mmol/L (3.5-5.1)
[2019-01-04 08:00] VITALS: BP 150/95
[2019-01-04] MEDS: MORPHINE SULFATE 15 MG TABLET.SA PO SCH ×2 (09:23→22:10)
[2019-01-04] MEDS: FAMOTIDINE/PF 20 MG/2 ML VIAL IV SCH ×2 (09:23→22:10)
[2019-01-04] MEDS: POLYETHYLENE GLYCOL 3350 17 GM POWD.PACK PO SCH (09:23)
[2019-01-04] MEDS: ENOXAPARIN SODIUM 30 MG/0.3 ML SQ SCH (09:25)
[2019-01-04 11:50] VITALS: BP 152/95
[2019-01-04] MEDS: FENTANYL 50 MCG/HR PATCH TD SCH (14:06)
--- NOTE | 2019-01-04 14:50 | NUR ---
f/u visit SW contacted by CM, Dr Flores met with pt and informed pt that surgery can not be done. Pt told he can request 2nd opinion. Sw attempted to visit with pt who has multiple visitors at bedside. Sw to revisit
--- NOTE | 2019-01-04 14:54 | NUR ---
RD NOTIFICATION Dx: Intractable Abdominal Pains. Hx: Constipation, DM, Hyperlipidemia, HTN, Gallbladder CA. Diet: Clear Liquids. Po intake 25-50% and has poor appetite as per pt. Pt stated pains have resolved; only feeling nauseous. Pt has not had a BM x 4 days now as per pt and has a history of constipation. RD recommends continue current diet. Advance as tolerated to 75gm Full Liquids. Meanwhile, Offer Ensure Clear at all meals. Will monitor BG levels. RD will continue to monitor and follow up as needed. Tarsha Mayes MS, RYAN Addendum: 01/04/19 at [address] Amended: Links added.
[2019-01-04 16:00] VITALS: BP 149/89
--- NOTE | 2019-01-04 16:18 | NUR ---
F/U visit Sw met with pt who states that he wants a second opinion. Sw notified CMD, who spoke to nurse Ember and explained what to do regarding consulting another surgeon. nurse Ember to notify primary MD.
--- NOTE | 2019-01-04 16:24 | NUR ---
notified serena lenz's pa about the consult she verbalized that she will see the patient Addendum: 01/04/19 at 2053 by WES AREVALO RN RN DISREGARD THIS NOTE
--- NOTE | 2019-01-04 16:30 | NUR ---
NOTIFIED ADELINA MURDOCK OF THE CONSULT. DISCUSSED WITH THAT IT IS A SECOND OPINION AND THE THAT [facility] WILL NOT DO SURGICAL INTERVENTION
--- NOTE | 2019-01-04 16:46 | NUR ---
LEFT PHONE NUMBERS AT BEDSIDE- DAUGHTER WILL BE ARRIVING CLOSE TO 5 PM AND WILL WANT TO SPEAK TO SW OR IF NOT AVAILABLE, TO A CM.
--- NOTE | 2019-01-04 17:00 | NUR ---
VIVIANA recd call from daughter Bing. Informed her that Dr Flores will not do surgery and pt is requesting second opinion. Daughter in agreement. Discussed olu hospice and services they can provide if second opinion is also no. SW to touch base with daughter after second opinion recd.
[2019-01-04 19:20] VITALS: BP 155/84
[2019-01-04] MEDS: ONDANSETRON HCL 4 MG/2 ML VIAL IVP PRN (22:22)
[2019-01-05 00:20] VITALS: BP 154/85
[2019-01-05 04:15] VITALS: BP 139/88
[2019-01-05 04:58] LABS: BASOPHILS % (AUTO) 0.6 % (0.0-5.0); EOSINOPHILS % (AUTO) 0.8 % (0.0-8.0); HEMATOCRIT 36.1 % (42-54); LYMPHOCYTES % (AUTO) 13.2 % (21.0-51.0); MEAN CORPUSCULAR HEMOGLOBIN 31.1 pg (27.0-33.0); MEAN CORPUSCULAR HGB CONC 35.3 g/dL (32.0-36.0); MONOCYTES % (AUTO) 15.1 % (3.0-13.0); NEUTROPHILS % (AUTO) 70.3 % (40.0-77.0); PLATELET COUNT (AUTO) 302 K/uL (130-400); RED BLOOD CELL COUNT(AUTO) 4.11 MIL/uL (4.50-6.20); RED CELL DISTRIBUTION WIDTH 13.4 % (11.0-15.5); WHITE BLOOD COUNT (AUTO) 10.4 K/uL (4.8-10.8)
[2019-01-05 05:24] LABS: ALBUMIN 2.4 g/dL (3.5-5.0); BILIRUBIN,TOTAL 0.9 mg/dL (0.2-1.0); CREATININE 0.7 mg/dL (0.5-1.5); POTASSIUM 3.9 mmol/L (3.5-5.1); TOTAL PROTEIN, SERUM 7.1 g/dL (6.0-8.3)
[2019-01-05] MEDS: LACTULOSE 20 GM/30 ML UDCUP PO SCH ×3 (06:04→20:39)
[2019-01-05 08:00] VITALS: BP 163/88
[2019-01-05] MEDS: FAMOTIDINE/PF 20 MG/2 ML VIAL IV SCH ×2 (10:07→20:40)
[2019-01-05] MEDS: ENOXAPARIN SODIUM 30 MG/0.3 ML SQ SCH (10:08)
[2019-01-05] MEDS: POLYETHYLENE GLYCOL 3350 17 GM POWD.PACK PO SCH (10:08)
[2019-01-05] MEDS: MORPHINE SULFATE 15 MG TABLET.SA PO SCH ×2 (10:08→20:40)
[2019-01-05 11:36] VITALS: BP 151/84
--- NOTE | 2019-01-05 11:44 | NUR ---
SURGICAL SECOND OPINION THIS MORNING THE PA FOR DR. LEY CAME TO REVIEW CAHRT AND SEE PATIENT. STATES SHE WOULD TALK TO DR. TORO ABOUT THE CASE . RN CALLED CM A FEW MINUTES AGO AND RELAYED THAT SHE REC'D CONTACT BACK THAT DR. TORO IS RECOMMENDING URGENT TRANSFER "IN LESS THAN 24 HRS" TO A HIGHER LEVEL OF CARE- [facility] OR [facility]- CM WILL PASS INFO ON TO VIVIANA AND CM DIRECTOR. RN TO SEND INFO TO SERVICE ADMINISTRATOR
--- NOTE | 2019-01-05 12:07 | NUR ---
NOTIFIED DOMINGO THE CASE MANAGEMENT ABOUT THE RECOMMENDATION OF DR. JONES TO TRANSFER THE PATIENT TO [facility] OR TO [facility]. ALSO NOTIFIED THE WRECKER OPERATOR ABOUT THE PLAN. ADELINA MURDOCK THE PA OF DR. JONES VERBALIZED THAT DR. JONES WILL SEE THE PATIENT AND THE FAMILY TONIGHT TO DISCUSS WITH THEM THIS RECOMMENDATION.
--- NOTE | 2019-01-05 12:09 | NUR ---
CONTACT INFO LEFT INFO FOR [facility]) IN CHART [phone] WAS ADVISED THAT SURGICAL ONCOLOGY DOES NOT TAKE UNFUNDED PATIENTS. "THEY HAVE TO GO THROUGH '[facility]' TO SEE IF ELIGIBLE FOR BENEFITS, IF THEY ARE, THEN WE MAEK APPOINTMENT" MEDICAL ONCOLOGY DOES TAKE UNFUNDED PATIENTS. NUMBERS/INFO IN CHART IF COAL TOWER OPERATOR OR FAMILY WANTS
[2019-01-05] MEDS: ONDANSETRON HCL 4 MG/2 ML VIAL IVP PRN (13:36)
[2019-01-05 16:00] VITALS: BP 155/85
[2019-01-05 19:22] VITALS: BP 154/91
[2019-01-06 00:04] VITALS: BP 146/84
[2019-01-06 04:14] VITALS: BP 151/84
[2019-01-06 05:25] LABS: BASOPHILS % (AUTO) 0.2 % (0.0-5.0); EOSINOPHILS % (AUTO) 0.7 % (0.0-8.0); HEMATOCRIT 38.7 % (42-54); LYMPHOCYTES % (AUTO) 12.5 % (21.0-51.0); MEAN CORPUSCULAR HEMOGLOBIN 29.9 pg (27.0-33.0); MEAN CORPUSCULAR HGB CONC 34.2 g/dL (32.0-36.0); MEAN CORPUSCULAR VOLUME 87.3 fL (79-99); MONOCYTES % (AUTO) 10.3 % (3.0-13.0); NEUTROPHILS % (AUTO) 76.3 % (40.0-77.0); PLATELET COUNT (AUTO) 358 K/uL (130-400); RED BLOOD CELL COUNT(AUTO) 4.44 MIL/uL (4.50-6.20); RED CELL DISTRIBUTION WIDTH 13.6 % (11.0-15.5); WHITE BLOOD COUNT (AUTO) 12.2 K/uL (4.8-10.8)
[2019-01-06] MEDS: LACTULOSE 20 GM/30 ML UDCUP PO SCH ×2 (05:34→13:08)
[2019-01-06 05:52] LABS: CREATININE 0.9 mg/dL (0.5-1.5); POTASSIUM 4.8 mmol/L (3.5-5.1)
[2019-01-06] MEDS: HYDROMORPHONE HCL 0.5 MG/0.5 ML ML IVP PRN (06:37)
[2019-01-06 08:00] VITALS: BP 155/81
[2019-01-06] MEDS: FAMOTIDINE/PF 20 MG/2 ML VIAL IV SCH (08:46)
[2019-01-06] MEDS: POLYETHYLENE GLYCOL 3350 17 GM POWD.PACK PO SCH (08:46)
[2019-01-06] MEDS: ENOXAPARIN SODIUM 30 MG/0.3 ML SQ SCH (08:47)
[2019-01-06] MEDS ORDERED: POTASSIUM CHLORIDE 20 MEQ ERTAB PO PRN (09:15)
[2019-01-06] MEDS ORDERED: POTASSIUM CHLORIDE 20MEQ/100ML 100 ML IV PRN (09:15)
[2019-01-06] MEDS ORDERED: POTASSIUM CHLORIDE 10% ELIXIR 20 MEQ/15 ML UDCUP PO PRN (09:15)
[2019-01-06] MEDS ORDERED: LIDOCAINE HCL-MPF 1% 2ML VIAL IV PRN (09:15)
--- NOTE | 2019-01-06 11:31 | NUR ---
DR. MARINO REACHED OUT TO THIS MORNING REGARDING SEEING PT AND DISCUSSING RECOMMENDATIONS, MD WAS SAID TO STILL COME AND SEE PT WITH POSSIBLE RECOMMENDATION, MD PENDING TO SEE PT.
[2019-01-06 12:00] VITALS: BP 160/82
[2019-01-06] MEDS: MORPHINE SULFATE 15 MG TABLET.SA PO SCH (13:08)
--- NOTE | 2019-01-06 15:20 | NUR ---
RD NOTIFICATION/ FOLLOW UP Diet: Clear Liquids/ Ensure clear TID. PO intake 50% and consuming 50-75% ensure clear. Pt continues with nausea, emesis and poor appetite. RD encouraged pt to consume Ensure Clear at all meals. Recommend continue current diet. Advance as tolerated. Monitor weight changes and po intake. RD will continue to monitor and follow up as needed. Addendum: 01/06/19 at [address] Amended: Links added.
[2019-01-06 16:00] VITALS: BP 158/87
[2019-01-06] MEDS: ONDANSETRON HCL 4 MG/2 ML VIAL IVP PRN (17:31)
--- NOTE | 2019-01-06 17:50 | NUR ---
DR. FERRIS HERE Dr. Ferris here to see pt and discussed with pt and family as to his recommendation going forward, Pt and family stated they have made personal arrangements to [facility] in [place]. Daughter Hortencia also pointed out pt has been accepted to [facility] and will be leaving [facility]. Discharge okayed from primary via telephone.
[2019-01-06] MEDS: TRAMADOL HCL 50 MG TABLET PO PRN (19:40)
== END 2019-01-06 19:53 | disposition home or self-care (01) | DRG 435 ==
LOC: EDH 20:00 → EDHIP 20:01 → 3BH 12-30 02:20
PROVIDERS: ADMIT Internal Medicine; ATTEND Internal Medicine
DX: C23 Malignant neoplasm of gallbladder (principal); E43 Unspecified severe protein-calorie malnutrition; C22.1 Intrahepatic bile duct carcinoma; C79.9 Secondary malignant neoplasm of unspecified site; K59.00 Constipation, unspecified; E78.00 Pure hypercholesterolemia, unspecified; E11.9 Type 2 diabetes mellitus without complications; E66.01 Morbid (severe) obesity due to excess calories; E87.6 Hypokalemia; I10 Essential (primary) hypertension; Z51.5 Encounter for palliative care; Z68.39 Body mass index [BMI] 39.0-39.9, adult; Z85.05 Personal history of malignant neoplasm of liver; Z85.09 Personal history of malignant neoplasm of other digestive organs; Z86.718 Personal history of other venous thrombosis and embolism; Z83.3 Family history of diabetes mellitus; Z82.5 Family history of asthma and other chronic lower respiratory diseases; Z82.0 Family history of epilepsy and other diseases of the nervous system
CPT/HCPCS: 36415; 74018; 74177; 80048; 80053; 80305; 81001; 82010; 82948; 83690; 84484; 85025; 93005; G0378; G0480; J0360; J1170; J1650; J2270; J2405; J3490; Q9967